=== PATIENT | female | born 1950 | race Caucasian/White ===

== ENCOUNTER 2024-10-08 10:54 | Emergency (ER) | payer OTHER ==
[~2024-10-08] VITALS: Ht 167.6 cm; Wt 54.7 kg
--- NOTE | 2024-10-08 11:31 | ED.PDOC ---
History of Present Illness HPI Comments 74 y/o F, with a history of Parkinson's disease, presents with c/o left-hip pain s/p mechanical fall, today. Patient reports on falling and injuring her left- hip, without LOC, while at a [employer], earlier, today. Patient reports losing balance and having no prior symptoms to fall. She reports no prior injuries or surgeries to left-hip in the past. She denies having any additional injuries, weakness, numbness, or other associated symptoms or modifiers at this time. 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 Family History Family History: Unknown Social History Smoker: Non-Smoker Alcohol: Denies ETOH Use Drugs: Denies Drug Use Lives In: Home Constitutional: denies: chills, diaphoresis, fatigue, fever, malaise, sweats, weakness, others EENTM: denies: blurred vision, double vision, ear bleeding, ear discharge, ear drainage, ear pain, ear ringing, eye pain, eye redness, hearing loss, mouth pain, mouth swelling, nasal discharge, nose bleeding, nose congestion, nose pain, photophobia, tearing, throat pain, throat swelling, voice changes, others Respiratory: denies: cough, hemoptysis, orthopnea, SOB at rest, shortness of breath, SOB with excertion, stridor, wheezing, others Cardiovascular: denies: chest pain, dizzy spells, diaphoresis, Dyspnea on exertion, edema, irregular heart beat, left arm pain, lightheadedness, palpitations, PND, syncope, others Gastrointestinal: denies: abdomen distended, abdominal pain, blood streaked bowels, constipated, diarrhea, dysphagia, difficulty swallowing, hematemesis, melena, nausea, poor appetite, poor fluid intake, rectal bleeding, rectal pain, vomiting, others Genitourinary: denies: abnormal vagina bleeding, burning, dyspareunia, dysuria, flank pain, frequency, hematuria, incontinence, pain, , vagina discharge, urgency, others Neurological: denies: dizziness, fainting, headache, left sided numbness, left sided weakness, numbness, paresthesia, pre-existing deficit, right sided numbness, right sided weakness, seizure, speech problems, tingling, tremors, weakness, others Musculoskeletal: reports: joint pain (left hip pain ); denies: back pain, gout, joint swelling, muscle pain, muscle stiffness, neck pain, others Integumetry: denies: bruises, change in color, change in hair/nails, dryness, laceration, lesions, lumps, rash, wounds, others Allergic/Immunocompromised: denies: Difficulty Healing, Frequent Infections, Hives, Itching, others Hematologic/Lymphatic: denies: anemia, blood clots, easy bleeding, easy bruising, swollen glands, others Endocrine: denies: excessive hunger, excessive sweating, excessive thirst, excessive urination, flushing, intolerance to cold, intolerance to heat, unexplained weight gain, unexplained weight loss, others Psychiatric: denies: anxiety, bipolar disorder, depression, hopeless, panic disorder, schizophrenia, sleepless, suicidal, others All Other Systems: Reviewed and Negative Physical Exam General Appearance: Moderate Distress HEENT: Normal ENT Inspection, Pharynx Normal, TMs Normal Neck: Full Range of Motion, Non-Tender, Normal, Normal Inspection Respiratory: Chest Non-Tender, Lungs Clear, No Accessory Muscle Use, No Respiratory Distress, Normal Breath Sounds Cardiovascular: No Edema, No JVD, No Murmur, No Gallop, Normal Peripheral Pulses, Regular Rate/Rhythm Breast Exam: Deferred Gastrointestinal: No Organomegaly, Non Tender, No Pulsatile Mass, Normal Bowel Sounds, Soft Genitalia: Deferred Pelvic: Deferred Rectal: Deferred Extremities: No calf tenderness, Normal capillary refill, Normal inspection, Normal range of motion, Non-tender, No pedal edema Musculoskeletal : Location: Left Extremity Location: Hip Apperance: Limited ROM, Tenderness: Severe Neurologic: Alert, 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 Was a procedure done?: No Differential Dx Considerations may include: fractures, dislocation, bruising, contusions, among others X-Ray, Labs, Meds, VS Vital Signs Date Time Temp Pulse Resp B/P (MAP) Pulse Ox O2 Delivery O2 Flow Rate FiO2 10/08/24 13:28 89 28 172/95 10/08/24 12:00 87 10/08/24 11:46 97.8 81 24 111/56 (74) 91 97.8 10/08/24 11:29 97.9 83 15 137/74 (95) 95 97.9 10/08/24 11:28 82 Lab Test 10/08/24 11:20 Range/Units White Blood Count 8.7 4.4-10.8 10^3/uL Red Blood Count 4.18 4.0-5.20 10^6/uL Hemoglobin 12.5 12.2-16.2 g/dL Hematocrit 38.2 36.0-46.0 % Mean Corpuscular Volume 91.4 80.0-100.0 fL Mean Corpuscular Hemoglobin 30.0 28.0-32.0 pg Mean Corpuscular Hemoglobin Concent 32.8 32.0-36.0 g/dL Red Cell Distribution Width 14.1 11.8-14.3 % Platelet Count 306 140-450 10^3/uL Mean Platelet Volume 7.6 6.9-10.8 fL Neutrophils (%) (Auto) 80.5 H 37.0-80.0 % Lymphocytes (%) (Auto) 10.8 10.0-50.0 % Monocytes (%) (Auto) 6.9 0.0-12.0 % Eosinophils (%) (Auto) 1.2 0.0-7.0 % Basophils (%) (Auto) 0.6 0.0-2.0 % Neutrophils # (Auto) 7.0 1.6-8.6 10 ^3/uL Lymphocytes # (Auto) 0.9 0.4-5.4 10 ^3/uL Monocytes # (Auto) 0.6 0-1.3 10 ^3/uL Eosinophils # (Auto) 0.1 0-0.8 10 ^3/uL Basophils # (Auto) 0.1 0-0.2 10 ^3/uL Nucleated Red Blood Cells 0.1 % Prothrombin Time 11.0 9.3-11.8 sec Prothrombin Time INR 1.04 0.9-1.15 Activated Partial Thromboplast Time 25.9 24.5-34.5 SEC Sodium Level 140 136-145 mmol/L Potassium Level 4.3 3.5-5.1 mmol/L Chloride Level 104 98-107 mmol/L Carbon Dioxide Level 26 20-31 mmol/L Anion Gap 10 5-15 Blood Urea Nitrogen 24 H 9-23 mg/dL Creatinine 0.69 0.550-1.02 mg/dL Glomerular Filtration Rate Calc 92 >90 mL/min BUN/Creatinine Ratio 34.8 H 10.0-20.0 Serum Glucose 110 H 74-106 mg/dL Calcium Level 9.5 8.7-10.4 mg/dL Current Medications Medications (Trade) Dose Ordered Sig/Sameera Route Start Time Stop Time Status Last Admin Morphine Sulfate 4 mg ONCE ONCE IV 10/08/24 13:30 10/08/24 13:31 DC 10/08/24 13:28 Ondansetron HCl (Zofran) 4 mg ONCE ONCE IV 10/08/24 13:30 10/08/24 13:31 DC 10/08/24 13:28 The chest x-ray shows mild pulmonary vascular congestion The x-ray of the left hip shows: IMPRESSION: 1. Acute left femoral neck fracture. The patient's CBC and chemistry panel are within normal limits The glucose is 110 An IV Hep-Lock was established. The patient was given morphine 4 mg IV push for the pain The patient was given Zofran 4 mg IV push for the nausea At this time, we contacted [facility] as the patient was a [facility] patient. The patient is being transferred to their facility The authorization number for the ER was [id number] A Barcenas catheter was also placed on this patient. We have discussed the findings with the patient was a family and they are in agreement The patient was being transferred Images Reviewed?: Images reviewed and evaluated by me Time of 1ST Reevaluation: 11:40 Reevaluation 1ST: Unchanged Patient Education/Counseling: Diagnosis, Treatment Family Education/Counseling: No Family Present Departure 1 Departure Time of Disposition: 14:37 Impression: Primary Impression: History of fall Additional Impression: Fracture of femoral neck, left Qualified Codes: S72.002A - Fracture of unspecified part of neck of left femur, initial encounter for closed fracture Disposition: 51 HOSPICE/MEDICAL FACILITY Condition: Fair Critical Care Note Critical Care Time?: No Stability Stability form required: Yes Stable for transfer: Intended for transfer (Health plan request transfer), To designated facility Heart Score Heart Score: Heart Score Response (Comments) Value History N/A 0 EKG N/A 0 Age N/A 0 Risk Factors N/A 0 Troponin N/A 0 Total 0 I personally scribed for BALAJI WALDRON MD ([email or web address]) on 10/08/24 at 11:31. Electronically submitted by Bang Shaikh ([email or web address]). BALAJI WALDRON MD Oct 08, 2024 11:31
[2024-10-08 11:42] LABS: Basophils # (auto) 0.1 10 ^3/uL (0-0.2); Basophils % (auto) 0.6 % (0.0-2.0); Eosinophils # (auto) 0.1 10 ^3/uL (0-0.8); Eosinophils % (auto) 1.2 % (0.0-7.0); Hematocrit 38.2 % (36.0-46.0); Hemoglobin 12.5 g/dL (12.2-16.2); Lymphocytes # (auto) 0.9 10 ^3/uL (0.4-5.4); Lymphocytes % (auto) 10.8 % (10.0-50.0); Mean Corpuscular Hgb Conc. 32.8 g/dL (32.0-36.0); Mean Corpuscular Volume 91.4 fL (80.0-100.0); Monocytes # (auto) 0.6 10 ^3/uL (0-1.3); Monocytes % (auto) 6.9 % (0.0-12.0); Neutrophils % (auto) 80.5 % (37.0-80.0); Nucleated Red Blood Cells % 0.1 %; Platelet Count (auto) 306 10^3/uL (140-450); Red Blood Cells 4.18 10^6/uL (4.0-5.20); Red Cell Distribution Width 14.1 % (11.8-14.3); White Blood Cell 8.7 10^3/uL (4.4-10.8)
[2024-10-08 11:50] LABS: Chloride 104 mmol/L (98-107); Potassium 4.3 mmol/L (3.5-5.1); Sodium 140 mmol/L (136-145)
[2024-10-08 11:51] LABS: Calcium 9.5 mg/dL (8.7-10.4)
[2024-10-08 11:56] LABS: BUN/Creatinine Ratio 34.8 (10.0-20.0)
[2024-10-08 11:57] LABS: Blood Urea Nitrogen 24 mg/dL (9-23); Carbon Dioxide 26 mmol/L (20-31); Glucose 110 mg/dL (74-106)
[2024-10-08 11:58] LABS: Anion Gap 10 (5-15); INR 1.04 (0.9-1.15); Partial Thromboplastin Time 25.9 SEC (24.5-34.5)
--- NOTE | 2024-10-08 12:12 | DVH ---
EXAM: XY CHEST PORTABLE REASON FOR EXAM: fall TECHNIQUE: 1 view of the chest COMPARISON: None FINDINGS: LUNGS: No pleural effusion, consolidation, or pneumothorax. Central vascular congestion. MEDIASTINUM: Normal cardiac size BONES: No acute osseous abnormality OTHER: None IMPRESSION: 1. Slight central pulmonary vascular congestion. HS:Y
--- NOTE | 2024-10-08 12:14 | DVH ---
PROCEDURE: Left hip radiographs. INDICATION: fall TECHNIQUE: 3 views of the left PICC were obtained. COMPARISON: None FINDINGS: There is acute intertrochanteric femoral neck fracture with varus deformity. The soft tiss ues are unremarkable. IMPRESSION: 1. Acute left femoral neck fracture.
[2024-10-08] MEDS: ONDANSETRON HCL 4 MG/2 ML VIAL IV ONE (13:28)
[2024-10-08] MEDS: MORPHINE SULFATE 4 MG/ML SYR/VIAL IV ONE ×2 (13:28→15:46)
[2024-10-08 14:53] LABS: Urine Bacteria None Seen /hpf (None Seen)
[2024-10-08 15:16] LABS: Urine Blood Negative /uL (Negative); Urine Clarity Clear (Clear); Urine Color Yellow (Yellow); Urine Protein, UAD Negative (Negative); Urine Specific Gravity 1.016 (1.001-1.035); Urine Squamous Epithelial Cell None Seen /hpf (<5); Urine Urobilinogen Normal (Negative); Urine WBC < 1 /HPF (0-5); Urine pH 6.5 (5.0-9.0)
[2024-10-08 16:00] VITALS: TEMP 97.8; O2SAT 92
[2024-10-08 16:20] VITALS: BP 141/79; PULSE 95; RESP 21
== END 2024-10-08 16:46 | disposition short-term general hospital (02) ==
LOC: ER 10:54
DX: S72.002A Fracture of unspecified part of neck of left femur, initial encounter for closed fracture (principal); G20.A1 Parkinson's disease without dyskinesia, without mention of fluctuations; Z90.89 Acquired absence of other organs; Z88.2 Allergy status to sulfonamides; Z88.0 Allergy status to penicillin; W19.XXXA Unspecified fall, initial encounter; Y93.89 Activity, other specified; Y92.89 Other specified places as the place of occurrence of the external cause; Y99.8 Other external cause status
CPT/HCPCS: 36415; 71045; 73502; 80048; 81001; 85025; 85610; 85730; 96374; 96375; 96376; 99285; J2270; J2405

== ENCOUNTER 2025-06-21 23:24 | Emergency (ER) | payer OTHER ==
[~2025-06-21] VITALS: Ht 162.6 cm; Wt 50.0 kg
[2025-06-21 23:24] VITALS: TEMP 97.9
--- NOTE | 2025-06-21 23:35 | ECG ---
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
[2025-06-22] MEDS: IPRATROPIUM BROM 0.5 MG/2.5ML INH SOL NEB ONE (00:12)
[2025-06-22] MEDS: ALBUTEROL SULF 2.5 MG/0.5ML(0.5%) NEB SOLN NEB ONE (00:12)
[2025-06-22 00:23] LABS: Hematocrit 37.4 % (36.0-46.0); Hemoglobin 12.5 g/dL (12.2-16.2); Mean Corpuscular Hemoglobin 30.1 pg (28.0-32.0); Mean Corpuscular Volume 89.8 fL (80.0-100.0); Nucleated Red Blood Cells % 0.0 %
--- NOTE | 2025-06-22 00:47 | ED.PDOC ---
SOB-HPI HPI Comments 75-year-old female who came to ER for shortness of breath. Patient has history of COPD, on home oxygen. Does have history of Parkinson's disease, she has been bed-bound. Was noted by family members the patient appears to be short of breath earlier, tachypneic at 30s, with chest tightness. 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 Family History Family History: Unknown Social History Smoker: Non-Smoker Alcohol: Denies ETOH Use Drugs: Denies Drug Use Lives In: Home Unable to Obtain due to: Altered Mental Status, Other (Parkinson's disease) Physical Exam General Appearance: No Apparent Distress, Normal HEENT: Normal ENT Inspection, Pharynx Normal, TMs Normal Neck: Full Range of Motion, Non-Tender, Normal, Normal Inspection Respiratory: Chest Non-Tender, Lungs Clear, No Accessory Muscle Use, No Respiratory Distress, Normal Breath Sounds Cardiovascular: No Edema, No JVD, No Murmur, No Gallop, Normal Peripheral Pulses, Regular Rate/Rhythm Breast Exam: Deferred Gastrointestinal: No Organomegaly, Non Tender, No Pulsatile Mass, Normal Bowel Sounds, Soft Genitalia: Deferred Pelvic: Deferred Rectal: Deferred Extremities: No calf tenderness, Normal capillary refill, Normal inspection, Normal range of motion, Non-tender, No pedal edema Musculoskeletal : Apperance: Normal 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 Was a procedure done?: No Differential Dx Differential Diagnosis: Asthma, Bronchitis, COPD, Pneumonia, Respiratory Distress X-Ray, Labs, Meds, VS Vital Signs Date Time Temp Pulse Resp B/P (MAP) Pulse Ox O2 Delivery O2 Flow Rate FiO2 06/22/25 01:33 90 96 Room Air* 0 21 06/22/25 01:31 90 22 131/80 (97) 06/22/25 00:47 88 06/22/25 00:13 16 96 Room Air* 0 21 06/21/25 23:27 88 06/21/25 23:24 97.9 88 18 146/73 95 97.9 Lab Test 06/22/25 01:27 06/22/25 00:13 Range/Units Troponin I High Sensitivity 16 18 </=34 ng/L White Blood Count 6.0 4.4-10.8 10^3/uL Red Blood Count 4.16 4.0-5.20 10^6/uL Hemoglobin 12.5 12.2-16.2 g/dL Hematocrit 37.4 36.0-46.0 % Mean Corpuscular Volume 89.8 80.0-100.0 fL Mean Corpuscular Hemoglobin 30.1 28.0-32.0 pg Mean Corpuscular Hemoglobin Concent 33.5 32.0-36.0 g/dL Red Cell Distribution Width 14.5 H 11.8-14.3 % Platelet Count 286 140-450 10^3/uL Mean Platelet Volume 8.1 6.9-10.8 fL Neutrophils (%) (Auto) 78.3 37.0-80.0 % Lymphocytes (%) (Auto) 10.5 10.0-50.0 % Monocytes (%) (Auto) 9.6 0.0-12.0 % Eosinophils (%) (Auto) 1.0 0.0-7.0 % Basophils (%) (Auto) 0.6 0.0-2.0 % Neutrophils # (Auto) 4.7 1.6-8.6 10 ^3/uL Lymphocytes # (Auto) 0.6 0.4-5.4 10 ^3/uL Monocytes # (Auto) 0.6 0-1.3 10 ^3/uL Eosinophils # (Auto) 0.1 0-0.8 10 ^3/uL Basophils # (Auto) 0 0-0.2 10 ^3/uL Nucleated Red Blood Cells 0.0 % Sodium Level 143 136-145 mmol/L Potassium Level 3.9 3.5-5.1 mmol/L Chloride Level 105 98-107 mmol/L Carbon Dioxide Level 26 20-31 mmol/L Anion Gap 12 5-15 Blood Urea Nitrogen 25 H 9-23 mg/dL Creatinine 0.62 0.550-1.02 mg/dL Glomerular Filtration Rate Calc 93 >90 mL/min BUN/Creatinine Ratio 40.3 H 10.0-20.0 Serum Glucose 85 74-106 mg/dL Calcium Level 9.3 8.7-10.4 mg/dL Magnesium Level 2.1 1.6-2.6 mg/dL Total Bilirubin 1.0 0.2-1.0 mg/dL Aspartate Amino Transferase (AST) 48 H 13-40 U/L Alanine Aminotransferase (ALT) < 9 7-40 U/L Alkaline Phosphatase 95 46-116 U/L B-Type Natriuretic Peptide 142.75 0-100 pg/mL Total Protein 6.3 5.7-8.2 g/dL Albumin 4.1 3.2-4.8 g/dL Current Medications Medications (Trade) Dose Ordered Sig/Sameera Route Start Time Stop Time Status Last Admin Albuterol (Ventolin Medneb) 5 mg ONCE ONCE NEB 06/22/25 00:15 06/22/25 00:16 DC 06/22/25 00:12 Ipratropium [place] (Atrovent Medneb) 0.5 mg ONCE ONCE NEB 06/22/25 00:15 06/22/25 00:16 DC 06/22/25 00:12 Time of 1ST Reevaluation: 00:43 Reevaluation 1ST: Unchanged Patient Education/Counseling: Diagnosis, Treatment Family Education/Counseling: Prognosis, Need For Follow Up SEPSIS Sepsis Screen Date sepsis recognized/suspect: Jun 21, 2025 Time Sepsis recognized/suspect: 2323 Recent Procedure: No On Antibiotic Therapy: No Respiratory Rate >20: No Heart Rate >90: No Temp<36 C (96.8 F) or >38.3 C: No SBP <90 or MAP <65 mmHG: No New Acute Mental Status Change: No Is the patient on CPAP, BIPAP,: No Physician Orders Chest Portable (06/22/25 00:01) Vital Signs Date Time Temp Pulse Resp B/P (MAP) Pulse Ox O2 Delivery O2 Flow Rate FiO2 06/22/25 01:33 90 96 Room Air* 0 21 06/22/25 01:31 90 22 131/80 (97) 06/22/25 00:47 88 06/22/25 00:13 16 96 Room Air* 0 21 06/21/25 23:27 88 06/21/25 23:24 97.9 88 18 146/73 95 97.9 Laboratory Tests Test 06/22/25 00:13 White Blood Count 6.0 10^3/uL (4.4-10.8) Medications Medications Dose Ordered Sig/Sameera Route Start Time Stop Time Status Last Admin Dose Admin Albuterol 5 mg ONCE ONCE NEB 06/22/25 00:15 06/22/25 00:16 DC 06/22/25 00:12 Ipratropium [place] 0.5 mg ONCE ONCE NEB 06/22/25 00:15 06/22/25 00:16 DC 06/22/25 00:12 Departure 1 Departure Time of Disposition: 02:30 Impression: Primary Impression: Pulmonary interstitial fibrosis Additional Impression: Dyspnea Disposition: 01 HOME / SELF CARE / HOMELESS Condition: Stable e-Prescriptions Prednisone (Prednisone) 20 Mg Tab 20 MG PO DAILY for 5 Days, #5 TAB Prov: RORY TINOCO MD 06/22/25 Azithromycin (Azithromycin) 500 Mg Tab 1 TAB PO DAILY for 5 Days, #5 TAB Prov: RORY TINOCO MD 06/22/25 Albuterol Sulfate (Albuterol Sulfate Hfa) 108 Mcg/Act Aer 108 MCG IN Q6HP PRN, #1 AER 3 Refills Prov: RORY TINOCO MD 06/22/25 Discharged With: Self Critical Care Note Critical Care Time?: No Stability Stability form required: No Heart Score Heart Score: Heart Score Response (Comments) Value History N/A 0 EKG N/A 0 Age N/A 0 Risk Factors N/A 0 Troponin N/A 0 Total 0 I personally scribed for RORY TINOCO MD ([email or web address]) on 06/22/25 at 00:47. Electronically submitted by Alfredo Parekh ([email or web address]). RORY TINOCO MD Jun 22, 2025 00:47
[2025-06-22 00:54] LABS: Albumin 4.1 g/dL (3.2-4.8); Alkaline Phosphatase 95 U/L (46-116); Anion Gap 12 (5-15); BUN/Creatinine Ratio 40.3 (10.0-20.0); Calcium 9.3 mg/dL (8.7-10.4); Carbon Dioxide 26 mmol/L (20-31); Chloride 105 mmol/L (98-107); Glucose 85 mg/dL (74-106); Magnesium 2.1 mg/dL (1.6-2.6); Potassium 3.9 mmol/L (3.5-5.1); Sodium 143 mmol/L (136-145); Total Protein 6.3 g/dL (5.7-8.2)
[2025-06-22 00:55] LABS: Alanine Aminotransferase < 9 U/L (7-40); Blood Urea Nitrogen 25 mg/dL (9-23)
[2025-06-22 00:56] LABS: Bilirubin, Total 1.0 mg/dL (0.2-1.0)
[2025-06-22 01:31] VITALS: BP 131/80; RESP 22
[2025-06-22 01:33] VITALS: PULSE 90; O2SAT 96
--- NOTE | 2025-06-22 02:24 | DVH ---
CHEST RADIOGRAPH INDICATION: SOB TECHNIQUE: Single frontal view of the chest was obtained COMPARISON: XY CHEST PORTABLE on DOS: 10/08/24 FINDINGS: Lines and Tubes: None Lungs: Moderate pulmonary edema. Pleura: No effusion. No pneumothorax. Cardiomediastinal contours: Unremarkable Bones: No acute osseous abnormality. IMPRESSION: 1. Moderate pulmonary edema.
[2025-06-22] MEDS ORDERED: ALBU108A5 IN (03:16)
[2025-06-22] MEDS ORDERED: AZIT500T66 PO (03:16)
[2025-06-22] MEDS ORDERED: PRED20TA2 PO (03:16)
== END 2025-06-22 03:40 | disposition home or self-care (01) ==
LOC: EDBD 23:24 → ER 23:24
DX: J84.10 Pulmonary fibrosis, unspecified (principal); R06.00 Dyspnea, unspecified; J44.9 Chronic obstructive pulmonary disease, unspecified; Z90.89 Acquired absence of other organs
CPT/HCPCS: 36415; 71045; 80053; 83735; 83880; 84484; 85025; 93005; 94640